=== PATIENT | female | born 1955 | race Caucasian/White ===

== ENCOUNTER 2018-06-05 09:59 | Emergency (ER) | payer OTHER ==
[~2018-06-05] VITALS: Ht 162.6 cm; Wt 61.2 kg
[~2018-06-05 09:59] MED LIST: ATIVAN1 MG PO; BROVANA15 MCG/2 M IH; GLUCOPHAGE500 MG PO; LAMICTAL XR200 MG PO; PROAIR HFA8.5 GM; REMERON15 MG PO; TRAMADOL 50 MG50 MG PO
[2018-06-05] MEDS ORDERED: CLONAZEPAM 0.50.5 M1 PO (10:14)
[2018-06-05] MEDS ORDERED: RISPERDAL0.25 MG PO (10:14)
[2018-06-05] MEDS ORDERED: AMANTADINE100 M1 PO (10:14)
[2018-06-05 10:44] LABS: ABSOLUTE EOSINOPHILS 0.1 thou/uL (0.0-0.7); ABSOLUTE LYMPHOCYTES 2.2 thou/uL (0.8-5.3); ABSOLUTE MONOCYTES 0.4 thou/uL (0.0-1.2); ABSOLUTE NEUTROPHILS 3.7 thou/uL (1.6-8.1); BASOPHILS 0.4 %; HEMATOCRIT 42.4 % (37.0-47.0); HEMOGLOBIN 14.1 gm/dL (12.0-15.0); LYMPHOCYTES 34.1 %; MCH 29.2 pg (26.0-34.0); MCHC 33.3 g/dL (28.0-37.0); MCV 87.6 fL (80.0-100.0); MPV 8.1 fl. (7.2-11.1); NUCLEATED RBCS 0 /100WBC; PLATELET COUNT* 214 thou/uL (150-400); POLYS 57.5 %; RBC 4.84 mil/uL (4.20-5.00); RDW-CV 13.3 % (10.5-14.5); WBC 6.5 thou/uL (4.0-11.0)
[2018-06-05 10:56] LABS: ANION GAP 6 mmol/L (7-16); BUN 7 mg/dL (7-18); CALCIUM 8.7 mg/dL (8.5-10.1); CHLORIDE 104 mmol/L (98-107); CO2 32 mmol/L (21-32); CREATININE 0.8 mg/dL (0.6-1.3); GLUCOSE 91 mg/dL (70-99); POTASSIUM 3.7 mmol/L (3.5-5.1); SODIUM 142 mmol/L (136-145)
[2018-06-05 10:57] LABS: APTT 27.8 Seconds (25.0-31.3); PROTIME 10.3 Seconds (9.20-11.50)
[2018-06-05 11:11] LABS: ALBUMIN 3.8 g/dL (3.4-5.0); ALKALINE PHOSPHATASE 78 U/L (46-116); CK-MB MASS < 0.5 ng/mL (<0.5-3.6); LIPASE 190 U/L (73-393); MAGNESIUM 1.9 mg/dL (1.8-2.4); NT-PRO BRAIN NAT PEPTIDE 45 pg/mL (<300); SGOT 17 U/L (15-37); SGPT 20 U/L (30-65); TOTAL BILIRUBIN 0.4 mg/dL (<0.1-1.0); TOTAL PROTEIN 7.3 g/dL (6.4-8.2); TROPONIN-I LEVEL <0.06 ng/mL (<0.06)
[2018-06-05] MEDS ORDERED: MEDROLDOSEPACK PO (11:22)
[2018-06-05 11:30] VITALS: BP 105/68
--- NOTE | 2018-06-05 17:14 | EKG ---
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
== END 2018-06-05 11:49 | disposition home or self-care (01) ==
LOC: M.ERS 09:59
PROVIDERS: Family Medicine
DX: R09.1 Pleurisy (principal); F31.9 Bipolar disorder, unspecified; E78.5 Hyperlipidemia, unspecified; M19.90 Unspecified osteoarthritis, unspecified site; J45.909 Unspecified asthma, uncomplicated; M79.7 Fibromyalgia; F17.210 Nicotine dependence, cigarettes, uncomplicated; Z88.8 Allergy status to other drugs, medicaments and biological substances; Z91.018 Allergy to other foods

== ENCOUNTER 2018-07-14 09:26 | Emergency (ER) | payer OTHER ==
[~2018-07-14] VITALS: Ht 162.6 cm; Wt 61.2 kg
[~2018-07-14 09:26] MED LIST changes: +AMANTADINE100 M1 PO; +CLONAZEPAM 0.50.5 M1 PO; +MEDROLDOSEPACK PO; +RISPERDAL0.25 MG PO
[2018-07-14 10:00] LABS: ABSOLUTE BASOPHILS 0.1 thou/uL (0.0-0.2); ABSOLUTE EOSINOPHILS 0.2 thou/uL (0.0-0.7); ABSOLUTE LYMPHOCYTES 2.6 thou/uL (0.8-5.3); ABSOLUTE MONOCYTES 0.5 thou/uL (0.0-1.2); ABSOLUTE NEUTROPHILS 3.6 thou/uL (1.6-8.1); BASOPHILS 0.8 %; EOSINOPHILS 2.3 %; HEMATOCRIT 45.7 % (37.0-47.0); HEMOGLOBIN 15.5 gm/dL (12.0-15.0); LYMPHOCYTES 37.9 %; MCH 29.9 pg (26.0-34.0); MCHC 33.9 g/dL (28.0-37.0); MCV 88.2 fL (80.0-100.0); MONOCYTES 6.8 %; MPV 8.3 fl. (7.2-11.1); NUCLEATED RBCS 0 /100WBC; PLATELET COUNT* 239 thou/uL (150-400); POLYS 52.2 %; RBC 5.19 mil/uL (4.20-5.00); RDW-CV 13.4 % (10.5-14.5); WBC 6.9 thou/uL (4.0-11.0)
[2018-07-14 10:11] LABS: ANION GAP 2 mmol/L (7-16); BUN 7 mg/dL (7-18); CALCIUM 9.2 mg/dL (8.5-10.1); CHLORIDE 103 mmol/L (98-107); CO2 33 mmol/L (21-32); CREATININE 0.8 mg/dL (0.6-1.3); GLUCOSE 104 mg/dL (70-99); SODIUM 138 mmol/L (136-145)
[2018-07-14 10:13] LABS: APTT 27.4 Seconds (25.0-31.3); PROTIME 10.1 Seconds (9.20-11.50)
[2018-07-14 10:21] LABS: ALBUMIN 4.3 g/dL (3.4-5.0); ALKALINE PHOSPHATASE 88 U/L (46-116); LIPASE 257 U/L (73-393); NT-PRO BRAIN NAT PEPTIDE 31 pg/mL (<300); SGOT 21 U/L (15-37); SGPT 23 U/L (30-65); TOTAL BILIRUBIN 0.3 mg/dL (<0.1-1.0); TOTAL PROTEIN 8.2 g/dL (6.4-8.2); TROPONIN-I LEVEL <0.06 ng/mL (<0.06)
[2018-07-14 11:10] LABS: URINE BILIRUBIN NEGATIVE (Negative); URINE BLOOD NEGATIVE (Negative); URINE CLARITY CLEAR; URINE COLOR YELLOW; URINE GLUCOSE-RANDOM NEGATIVE (Negative); URINE KETONES NEGATIVE (Negative); URINE LEUKOCYTES-REFLEX NEGATIVE (Negative); URINE NITRITE-REFLEX NEGATIVE (Negative); URINE PROTEIN NEGATIVE (Negative); URINE SPECIFIC GRAVITY <= 1.005 (1.005-1.030); URINE UROBILINOGEN 0.2 E.U./dl (0.2-1.0)
[2018-07-14] MEDS ORDERED: MEDROLDOSEPACK PO (12:41)
[2018-07-14 12:53] VITALS: BP 101/64
--- NOTE | 2018-07-15 11:01 | EKG ---
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 Stringer: MILENA : 1955 Requested By: Loraine Guajardo Order Number: [id number] MD: Giacomo Meléndez Measurements Intervals [place] Rate: 96 P: 87 [place]: 166 QRS: 59 QRSD: 84 T: 66 QT: 367 QTc: 464 Interpretive Statements Sinus rhythm nonspecific st changes Right atrial enlargement Borderline low voltage, extremity leads Baseline wander in lead(s) II,III,aVL,aVF Compared to ECG 06/05/2018 10:10:51 No significant changes Electronically Signed On 07-15-2018 11:00:52 CDT by Giacomo Meléndez [email or web address] <ELECTRONICALLY SIGNED> By: Giacomo Meléndez MD, FACC 07/15/18 1100 Giacomo Meléndez MD, [facility] /EPI
== END 2018-07-14 12:55 | disposition home or self-care (01) ==
LOC: M.ERS 09:26
PROVIDERS: Personal Emergency Response Attendant
DX: J45.909 Unspecified asthma, uncomplicated (principal); F31.9 Bipolar disorder, unspecified; E78.5 Hyperlipidemia, unspecified; M19.90 Unspecified osteoarthritis, unspecified site; M79.7 Fibromyalgia; F17.210 Nicotine dependence, cigarettes, uncomplicated; Z88.6 Allergy status to analgesic agent; Z88.8 Allergy status to other drugs, medicaments and biological substances; Z91.018 Allergy to other foods

== ENCOUNTER → 2018-10-12 | Outpatient (CLI) | payer OTHER | LOC: M.RAD 10:23 | DX: Z12.31 Encounter for screening mammogram for malignant neoplasm of breast (principal) ==

== ENCOUNTER → 2018-10-17 | Outpatient (CLI) | payer OTHER | LOC: M.ULTRA 10:21 | DX: N63.11 Unspecified lump in the right breast, upper outer quadrant (principal) ==

== ENCOUNTER 2018-11-23 09:24 | Inpatient (IN) | payer OTHER ==
[~2018-11-23] VITALS: Ht 162.6 cm; Wt 55.8 kg
[~2018-11-23 09:24] MED LIST changes: -LAMICTAL XR200 MG PO; +LAMICTAL200 MG PO; -PROAIR HFA8.5 GM; +PROAIR HFA8.5 GM INH; +RISPERDAL 1 MG T1 MG PO; -RISPERDAL0.25 MG PO
[2018-11-23 09:29] VITALS: BP 151/78
[2018-11-23 10:08] LABS: ABSOLUTE LYMPHOCYTES 1.1 thou/uL (0.8-5.3); ABSOLUTE MONOCYTES 0.6 thou/uL (0.0-1.2); ABSOLUTE NEUTROPHILS 3.3 thou/uL (1.6-8.1); BASOPHILS 0.5 %; EOSINOPHILS 0.6 %; HEMOGLOBIN 14.2 gm/dL (12.0-15.0); LYMPHOCYTES 22.4 %; MCH 29.4 pg (26.0-34.0); MCV 89.1 fL (80.0-100.0); MONOCYTES 10.9 %; MPV 8.1 fl. (7.2-11.1); NUCLEATED RBCS 0 /100WBC; PLATELET COUNT* 212 thou/uL (150-400); POLYS 65.6 %; RBC 4.83 mil/uL (4.20-5.00); RDW-CV 13.4 % (10.5-14.5); WBC 5.1 thou/uL (4.0-11.0)
[2018-11-23 10:18] LABS: PROTIME 10.2 Seconds (9.20-11.50)
[2018-11-23 10:50] LABS: ANION GAP 8 mmol/L (7-16); BUN 7 mg/dL (7-18); CHLORIDE 103 mmol/L (98-107); CO2 33 mmol/L (21-32); CREATININE 0.9 mg/dL (0.6-1.3); GLUCOSE 102 mg/dL (70-99); SODIUM 144 mmol/L (136-145); TROPONIN-I LEVEL <0.06 ng/mL (<0.06)
[2018-11-23 11:01] LABS: ALBUMIN 3.9 g/dL (3.4-5.0); ALKALINE PHOSPHATASE 78 U/L (46-116); NT-PRO BRAIN NAT PEPTIDE 53 pg/mL (<300); SGOT 22 U/L (15-37); SGPT 21 U/L (30-65); TOTAL BILIRUBIN 0.2 mg/dL (<0.1-1.0); TOTAL PROTEIN 7.5 g/dL (6.4-8.2)
[2018-11-23 11:27] VITALS: BP 120/62
[2018-11-23 12:00] VITALS: BP 117/72
[2018-11-23] MEDS ORDERED: CLONAZEPAM 1 MG1 M1 PO (12:38)
[2018-11-23] MEDS ORDERED: NEURONTIN600 MG PO (12:41)
[2018-11-23] MEDS ORDERED: NEURONTIN300 MG PO (12:42)
[2018-11-23] MEDS ORDERED: SINGULAIR 10 MG10 M1 PO (12:43)
[2018-11-23 13:53] LABS: INFLUENZA A ANTIGEN None Detected (None Detect); INFLUENZA B ANTIGEN None Detected (None Detect)
[2018-11-23 15:00] VITALS: BP 106/59
--- NOTE | 2018-11-23 15:44 | EKG ---
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 : 1955 Requested By: Sanjeev Fierro Order Number: [id number] MD: Giacomo Meléndez Measurements Intervals [place] Rate: 92 P: 83 [place]: 165 QRS: 77 QRSD: 78 T: 74 QT: 370 QTc: 458 Interpretive Statements Sinus rhythm Right atrial enlargement Compared to ECG 07/14/2018 09:30:20 ST (T wave) deviation no longer present Electronically Signed On 11-23-2018 15:44:39 BUTCHER SCULLION by Giacomo Meléndez [email or web address] <ELECTRONICALLY SIGNED> By: Giacomo Meléndez MD, [facility] 11/23/18 1544 1012 1012 Giacomo Meléndez MD, [facility] /EPI
[2018-11-23 19:45] VITALS: BP 116/76
[2018-11-24] VITALS: BP 105/56
[2018-11-24 04:00] VITALS: BP 98/40
[2018-11-24 06:31] LABS: HEMATOCRIT 37.7 % (37.0-47.0); HEMOGLOBIN 12.4 gm/dL (12.0-15.0); MCH 29.5 pg (26.0-34.0); MCV 89.2 fL (80.0-100.0); MPV 8.5 fl. (7.2-11.1); RBC 4.23 mil/uL (4.20-5.00); RDW-CV 13.7 % (10.5-14.5); WBC 7.4 thou/uL (4.0-11.0)
[2018-11-24 08:00] VITALS: BP 121/67
[2018-11-24 08:03] LABS: ALBUMIN 3.1 g/dL (3.4-5.0); CREATININE 0.7 mg/dL (0.6-1.3); MAGNESIUM 1.9 mg/dL (1.8-2.4); POTASSIUM 3.7 mmol/L (3.5-5.1); TOTAL BILIRUBIN 0.2 mg/dL (<0.1-1.0); TOTAL PROTEIN 6.3 g/dL (6.4-8.2)
[2018-11-24 12:45] VITALS: BP 107/56
[2018-11-24 16:35] VITALS: BP 110/60
[2018-11-24 20:45] VITALS: BP 107/56
[2018-11-25] VITALS: BP 121/69
[2018-11-25 04:42] VITALS: BP 108/62
[2018-11-25 08:00] VITALS: BP 125/60
[2018-11-25 15:49] VITALS: BP 130/69
[2018-11-25 20:25] VITALS: BP 126/70
[2018-11-26] VITALS: BP 118/66
[2018-11-26 04:00] VITALS: BP 128/75
[2018-11-26 08:46] VITALS: BP 132/75
[2018-11-26 09:05] LABS: HEMATOCRIT 38.3 % (37.0-47.0); HEMOGLOBIN 12.6 gm/dL (12.0-15.0); MCHC 32.8 g/dL (28.0-37.0); MCV 88.4 fL (80.0-100.0); MPV 8.1 fl. (7.2-11.1); NUCLEATED RBCS 0 /100WBC; PLATELET COUNT* 188 thou/uL (150-400); RBC 4.33 mil/uL (4.20-5.00); RDW-CV 13.6 % (10.5-14.5); WBC 13.2 thou/uL (4.0-11.0)
[2018-11-26 09:27] LABS: CALCIUM 8.3 mg/dL (8.5-10.1); CREATININE 0.7 mg/dL (0.6-1.3); POTASSIUM 3.5 mmol/L (3.5-5.1)
[2018-11-26 10:14] LABS: ABSOLUTE MONOCYTES 0.4 thou/uL (0.0-1.2); ABSOLUTE NEUTROPHILS 10.8 thou/uL (1.6-8.1); ANISOCYTOSIS 1+; PLATELET ESTIMATE ADEQUATE; POIKILOCYTOSIS 1+
[2018-11-26 16:19] VITALS: BP 146/80
[2018-11-26 20:20] VITALS: BP 138/75
[2018-11-27 08:19] LABS: ABSOLUTE LYMPHOCYTES 1.7 thou/uL (0.8-5.3); ABSOLUTE MONOCYTES 0.9 thou/uL (0.0-1.2); ABSOLUTE NEUTROPHILS 8.9 thou/uL (1.6-8.1); BASOPHILS 0.3 %; HEMATOCRIT 37.9 % (37.0-47.0); HEMOGLOBIN 12.6 gm/dL (12.0-15.0); LYMPHOCYTES 14.4 %; MCH 29.1 pg (26.0-34.0); MCHC 33.2 g/dL (28.0-37.0); MCV 87.6 fL (80.0-100.0); MONOCYTES 8.1 %; NUCLEATED RBCS 0 /100WBC; PLATELET COUNT* 193 thou/uL (150-400); POLYS 77.2 %; RBC 4.33 mil/uL (4.20-5.00); RDW-CV 13.7 % (10.5-14.5); WBC 11.5 thou/uL (4.0-11.0)
[2018-11-27 08:26] LABS: CALCIUM 8.5 mg/dL (8.5-10.1); CREATININE 0.7 mg/dL (0.6-1.3)
[2018-11-27 16:57] VITALS: BP 101/69
[2018-11-27 20:14] VITALS: BP 131/90
[2018-11-28] MEDS ORDERED: PREDNISONE 20 M20 MG PO (10:03)
[2018-11-28] MEDS ORDERED: IPRAT-ALBUT 0.5-3 ML INH (10:03)
[2018-11-28] MEDS ORDERED: CEFDINIR300 MG PO (10:03)
[2018-11-28 10:16] VITALS: BP 131/90
[2018-11-28 10:22] VITALS: BP 131/90
== END 2018-11-28 12:08 | disposition home or self-care (01) | DRG 189 ==
LOC: M.ERS 09:24 → M.3W 10:36 → M.TBA-ER 10:36 → M.3W 11:30
PROVIDERS: Emergency Medicine Emergency Medical Services; ADMIT Internal Medicine
DX: J96.01 Acute respiratory failure with hypoxia (principal); R65.10 Systemic inflammatory response syndrome (SIRS) of non-infectious origin without acute organ dysfunction; J44.0 Chronic obstructive pulmonary disease with (acute) lower respiratory infection; J20.9 Acute bronchitis, unspecified; F31.9 Bipolar disorder, unspecified; E78.5 Hyperlipidemia, unspecified; F17.210 Nicotine dependence, cigarettes, uncomplicated; M79.7 Fibromyalgia; M19.90 Unspecified osteoarthritis, unspecified site; T38.0X5A Adverse effect of glucocorticoids and synthetic analogues, initial encounter; J45.909 Unspecified asthma, uncomplicated; Z88.8 Allergy status to other drugs, medicaments and biological substances; Z91.02 Food additives allergy status; Z79.899 Other long term (current) drug therapy; D72.829 Elevated white blood cell count, unspecified

== ENCOUNTER → 2019-03-20 | Outpatient (CLI) | payer OTHER ==
[~2019-03-20] MED LIST changes: +CEFDINIR300 MG PO; +CLONAZEPAM 1 MG1 M1 PO; +IPRAT-ALBUT 0.5-3 ML INH; +NEURONTIN300 MG PO; +NEURONTIN600 MG PO; +PREDNISONE 20 M20 MG PO; +SINGULAIR 10 MG10 M1 PO
== END ==
LOC: M.ULTRA 10:05
DX: R22.2 Localized swelling, mass and lump, trunk (principal)

== ENCOUNTER 2019-06-23 10:47 | Emergency (ER) | payer OTHER ==
[~2019-06-23] VITALS: Ht 162.6 cm; Wt 56.7 kg
[2019-06-23 11:37] LABS: ABSOLUTE BASOPHILS 0.1 thou/uL (0.0-0.2); ABSOLUTE EOSINOPHILS 0.2 thou/uL (0.0-0.7); ABSOLUTE LYMPHOCYTES 2.7 thou/uL (0.8-5.3); ABSOLUTE MONOCYTES 0.5 thou/uL (0.0-1.2); ABSOLUTE NEUTROPHILS 4.5 thou/uL (1.6-8.1); BASOPHILS 0.8 %; EOSINOPHILS 2.3 %; HEMATOCRIT 39.3 % (37.0-47.0); HEMOGLOBIN 13.3 gm/dL (12.0-15.0); LYMPHOCYTES 33.9 %; MCH 29.8 pg (26.0-34.0); MCHC 33.8 g/dL (28.0-37.0); MPV 7.9 fl. (7.2-11.1); NUCLEATED RBCS 0 /100WBC; PLATELET COUNT* 225 thou/uL (150-400); RBC 4.47 mil/uL (4.20-5.00); RDW-CV 13.2 % (10.5-14.5); WBC 7.9 thou/uL (4.0-11.0)
[2019-06-23 11:53] LABS: ANION GAP 7 mmol/L (7-16); BUN 7 mg/dL (7-18); CALCIUM 8.8 mg/dL (8.5-10.1); CHLORIDE 102 mmol/L (98-107); CO2 30 mmol/L (21-32); CREATININE 0.8 mg/dL (0.6-1.3); GLUCOSE 83 mg/dL (70-99); POTASSIUM 3.6 mmol/L (3.5-5.1); SODIUM 139 mmol/L (136-145)
[2019-06-23 12:06] LABS: ALBUMIN 3.8 g/dL (3.4-5.0); ALKALINE PHOSPHATASE 66 U/L (46-116); LIPASE 219 U/L (73-393); MAGNESIUM 1.8 mg/dL (1.8-2.4); NT-PRO BRAIN NAT PEPTIDE 62 pg/mL (<300); SGOT 17 U/L (15-37); SGPT 23 U/L (30-65); TOTAL BILIRUBIN 0.3 mg/dL (<0.1-1.0); TOTAL PROTEIN 6.6 g/dL (6.4-8.2); TROPONIN-I LEVEL <0.06 ng/mL (<0.06)
[2019-06-23] MEDS ORDERED: NORCO 5-325 TA1 EAC1 PO (13:47)
[2019-06-23 13:52] VITALS: BP 114/64
--- NOTE | 2019-06-24 11:15 | EKG ---
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
--- NOTE | 2019-06-24 11:16 | EKG ---
[place] [address] ELECTROCARDIOGRAM REPORT Name: GRISEL KAYE [id number] Admission: 06/23/19 Attend Phys: Discharge: 06/23/19 Date of : 59 Report #: [id number] THIS REPORT FOR: //name// [facility] ED Test Date: 2019-06-23 Test Time: 13:14:53 Pat Name: GRISEL KAYE Department: Room: Gender: F Financial Intern: JESUS : 1955 Requested By: Sanjeev Fierro Order Number: [id number] MD: Giacomo Meléndez Measurements Intervals [place] Rate: 75 P: 83 RI: 224 QRS: 57 QRSD: 86 T: 59 QT: 419 QTc: 468 Interpretive Statements Sinus rhythm Prolonged RI interval Borderline low voltage, extremity leads Electronically Signed On 06-24-2019 11:16:18 CDT by Giacomo Meléndez [email or web address] <ELECTRONICALLY SIGNED> By: Giacomo Meléndez MD, [facility] 06/24/19 1116 1314 1314 Giacomo Meléndez MD, FACC /EPI
== END 2019-06-23 13:52 | disposition home or self-care (01) ==
LOC: M.ERS 10:47
PROVIDERS: Emergency Medicine Emergency Medical Services
DX: M79.7 Fibromyalgia (principal); R07.9 Chest pain, unspecified; E78.5 Hyperlipidemia, unspecified; M19.90 Unspecified osteoarthritis, unspecified site; J45.909 Unspecified asthma, uncomplicated; F31.9 Bipolar disorder, unspecified; F17.210 Nicotine dependence, cigarettes, uncomplicated; Z91.010 Allergy to peanuts; Z91.018 Allergy to other foods; Z88.8 Allergy status to other drugs, medicaments and biological substances

== ENCOUNTER 2019-09-05 10:56 | Emergency (ER) | payer OTHER ==
[~2019-09-05] VITALS: Ht 162.6 cm; Wt 56.7 kg
[~2019-09-05 10:56] MED LIST changes: +NORCO 5-325 TA1 EAC1 PO
[2019-09-05 12:07] LABS: ABSOLUTE MONOCYTES 0.2 thou/uL (0.0-1.2); ABSOLUTE NEUTROPHILS 5.5 thou/uL (1.6-8.1); BASOPHILS 0.5 %; EOSINOPHILS 0.4 %; HEMATOCRIT 42.2 % (37.0-47.0); HEMOGLOBIN 14.2 gm/dL (12.0-15.0); LYMPHOCYTES 14.5 %; MCH 29.7 pg (26.0-34.0); MCHC 33.7 g/dL (28.0-37.0); MCV 88.2 fL (80.0-100.0); MONOCYTES 2.5 %; MPV 7.8 fl. (7.2-11.1); NUCLEATED RBCS 0 /100WBC; PLATELET COUNT* 242 thou/uL (150-400); POLYS 82.1 %; RBC 4.78 mil/uL (4.20-5.00); WBC 6.7 thou/uL (4.0-11.0)
[2019-09-05 12:17] LABS: CALCIUM 8.9 mg/dL (8.5-10.1); CREATININE 0.7 mg/dL (0.6-1.3); POTASSIUM 3.9 mmol/L (3.5-5.1)
[2019-09-05 12:21] LABS: ALBUMIN 4.2 g/dL (3.4-5.0); TOTAL BILIRUBIN 0.2 mg/dL (<0.1-1.0); TOTAL PROTEIN 7.5 g/dL (6.4-8.2)
[2019-09-05] MEDS ORDERED: NORCO 5-325 TA1 EAC1 PO (12:38)
[2019-09-05] MEDS ORDERED: NABUMETONE 750750 M1 PO (12:43)
[2019-09-05 13:27] VITALS: BP 120/68
--- NOTE | 2019-09-05 15:23 | EKG ---
[place] [address] ELECTROCARDIOGRAM REPORT Name: GRISEL KAYE Room: [facility]#: [id number] Admission: 09/05/19 Attend Phys: Discharge: 09/05/19 Date of : 59 Report #: [id number] THIS REPORT FOR: //name// [facility] ED Test Date: 2019-09-05 Test Time: 11:25:28 Pat Name: GRISEL KAYE Department: Room: Gender: F Or Assistant: : 1955 Requested By: Lashell Cason Order Number: [id number] MD: Giacomo Meléndez Measurements Intervals [place] Rate: 80 P: 86 NM: 173 QRS: 75 QRSD: 78 T: 81 QT: 389 QTc: 449 Interpretive Statements Sinus rhythm Biatrial enlargement septal infarct, age indeterminate Baseline wander in lead(s) I,III,aVL,aVF,V6 Compared to ECG 06/23/2019 13:14:53 Atrial abnormality now present Myocardial infarct finding now present First degree AV block no longer present Electronically Signed On 09-05-2019 15:23:11 [employer] by Giacomo Meléndez [email or web address] <ELECTRONICALLY SIGNED> By: Giacomo Meléndez MD, [facility] 09/05/19 1523 1125 1125 Giacomo Meléndez MD, [facility] /EPI
== END 2019-09-05 13:27 | disposition home or self-care (01) ==
LOC: M.ERS 10:56
PROVIDERS: Nurse Practitioner Family
DX: J20.9 Acute bronchitis, unspecified (principal); M79.18 Myalgia, other site; F31.9 Bipolar disorder, unspecified; E78.5 Hyperlipidemia, unspecified; M19.90 Unspecified osteoarthritis, unspecified site; J45.909 Unspecified asthma, uncomplicated; F17.210 Nicotine dependence, cigarettes, uncomplicated; Z91.010 Allergy to peanuts; Z91.018 Allergy to other foods; Z88.8 Allergy status to other drugs, medicaments and biological substances

== ENCOUNTER 2019-10-17 17:53 | Emergency (ER) | payer OTHER ==
[~2019-10-17] VITALS: Ht 162.6 cm; Wt 59.0 kg
[~2019-10-17 17:53] MED LIST changes: +NABUMETONE 750750 M1 PO
[2019-10-17] MEDS ORDERED: STIOLTO RESPIMAT4 GM INH (18:01)
[2019-10-17 18:46] LABS: ABSOLUTE BASOPHILS 0.1 thou/uL (0.0-0.2); ABSOLUTE EOSINOPHILS 0.2 thou/uL (0.0-0.7); ABSOLUTE MONOCYTES 0.6 thou/uL (0.0-1.2); ABSOLUTE NEUTROPHILS 5.2 thou/uL (1.6-8.1); BASOPHILS 0.6 %; EOSINOPHILS 1.9 %; HEMATOCRIT 41.6 % (37.0-47.0); HEMOGLOBIN 14.3 gm/dL (12.0-15.0); LYMPHOCYTES 33.1 %; MCH 30.2 pg (26.0-34.0); MCHC 34.3 g/dL (28.0-37.0); MCV 88.2 fL (80.0-100.0); MONOCYTES 6.9 %; MPV 8.3 fl. (7.2-11.1); NUCLEATED RBCS 0 /100WBC; PLATELET COUNT* 272 thou/uL (150-400); POLYS 57.5 %; RBC 4.72 mil/uL (4.20-5.00); RDW-CV 13.3 % (10.5-14.5); WBC 9.1 thou/uL (4.0-11.0)
[2019-10-17 18:57] LABS: CALCIUM 8.7 mg/dL (8.5-10.1); CREATININE 0.8 mg/dL (0.6-1.3); POTASSIUM 3.9 mmol/L (3.5-5.1)
[2019-10-17 19:07] LABS: ALBUMIN 3.9 g/dL (3.4-5.0); MAGNESIUM 1.8 mg/dL (1.8-2.4); TOTAL BILIRUBIN 0.3 mg/dL (<0.1-1.0); TOTAL PROTEIN 7.2 g/dL (6.4-8.2)
[2019-10-17 21:17] VITALS: BP 110/60
--- NOTE | 2019-10-18 10:26 | EKG ---
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: : 1955 Requested By: Sanjeev Fierro Order Number: [id number] MD: Giacomo Meléndez Measurements Intervals [place] Rate: 91 P: 83 [place]: 177 QRS: 73 QRSD: 78 T: 75 QT: 379 QTc: 467 Interpretive Statements Sinus rhythm Biatrial enlargement Compared to ECG 09/05/2019 11:25:28 Myocardial infarct finding no longer present Electronically Signed On 10-18-2019 10:25:36 PROJECT FINANCE ANALYST by Giacomo Meléndez [email or web address] <ELECTRONICALLY SIGNED> By: Giacomo Meléndez MD, [facility] 10/18/19 1025 D: 01/1830 30 Giacomo Meléndez MD, FACC /EPI
== END 2019-10-17 21:18 | disposition home or self-care (01) ==
LOC: M.ERS 17:53
PROVIDERS: Emergency Medicine Emergency Medical Services
DX: R07.89 Other chest pain (principal); R06.02 Shortness of breath; F17.210 Nicotine dependence, cigarettes, uncomplicated; Z91.018 Allergy to other foods; Z88.8 Allergy status to other drugs, medicaments and biological substances

== ENCOUNTER 2020-01-24 07:11 | Emergency (ER) | payer OTHER ==
[~2020-01-24] VITALS: Ht 162.6 cm; Wt 56.7 kg
[~2020-01-24 07:11] MED LIST changes: -CLONAZEPAM 0.50.5 M1 PO; +KLONOPIN1 MG PO; +STIOLTO RESPIMAT4 GM INH
[2020-01-24] MEDS ORDERED: LAMOTRIGINE200 MG PO (07:30)
[2020-01-24] MEDS ORDERED: SLEEPING50 MG PO (07:31)
[2020-01-24] MEDS ORDERED: GINKGO60 MG PO (07:32)
[2020-01-24] MEDS ORDERED: FLAX OIL1000 MG PO (07:32)
[2020-01-24 07:41] LABS: ABSOLUTE EOSINOPHILS 0.2 thou/uL (0.0-0.7); ABSOLUTE MONOCYTES 0.6 thou/uL (0.0-1.2); BASOPHILS 0.5 %; EOSINOPHILS 1.9 %; HEMATOCRIT 40.5 % (37.0-47.0); HEMOGLOBIN 13.6 gm/dL (12.0-15.0); LYMPHOCYTES 26.2 %; MCHC 33.7 g/dL (28.0-37.0); MCV 89.2 fL (80.0-100.0); MONOCYTES 7.7 %; MPV 8.5 fl. (7.2-11.1); NUCLEATED RBCS 0 /100WBC; PLATELET COUNT* 199 thou/uL (150-400); POLYS 63.7 %; RBC 4.54 mil/uL (4.20-5.00); RDW-CV 12.7 % (10.5-14.5); WBC 7.8 thou/uL (4.0-11.0)
[2020-01-24 07:54] LABS: CREATININE 0.9 mg/dL (0.6-1.3); POTASSIUM 3.7 mmol/L (3.5-5.1)
[2020-01-24 07:59] LABS: ALBUMIN 3.4 g/dL (3.4-5.0); TOTAL BILIRUBIN 0.3 mg/dL (<0.1-1.0); TOTAL PROTEIN 6.1 g/dL (6.4-8.2)
[2020-01-24 08:51] VITALS: BP 103/62
== END 2020-01-24 08:51 | disposition home or self-care (01) ==
LOC: M.ERS 07:11
PROVIDERS: Emergency Medicine
DX: S70.02XA Contusion of left hip, initial encounter (principal); S09.90XA Unspecified injury of head, initial encounter; R42 Dizziness and giddiness; E78.5 Hyperlipidemia, unspecified; J45.909 Unspecified asthma, uncomplicated; M19.90 Unspecified osteoarthritis, unspecified site; M79.7 Fibromyalgia; F31.9 Bipolar disorder, unspecified; F17.210 Nicotine dependence, cigarettes, uncomplicated; Z90.49 Acquired absence of other specified parts of digestive tract; Z91.018 Allergy to other foods; Z91.010 Allergy to peanuts; Z88.1 Allergy status to other antibiotic agents; Z88.8 Allergy status to other drugs, medicaments and biological substances; W18.39XA Other fall on same level, initial encounter; Y93.89 Activity, other specified; Y92.89 Other specified places as the place of occurrence of the external cause; Y99.8 Other external cause status

== ENCOUNTER 2020-05-06 12:59 | Emergency (ER) | payer OTHER ==
[~2020-05-06] VITALS: Ht 162.6 cm; Wt 54.4 kg
[~2020-05-06 12:59] MED LIST changes: +FLAX OIL1000 MG PO; +GINKGO60 MG PO; +LAMOTRIGINE200 MG PO; +SLEEPING50 MG PO
[2020-05-06 13:47] LABS: ABSOLUTE BASOPHILS 0.1 thou/uL (0.0-0.2); ABSOLUTE EOSINOPHILS 0.2 thou/uL (0.0-0.7); ABSOLUTE LYMPHOCYTES 2.3 thou/uL (0.8-5.3); ABSOLUTE MONOCYTES 0.7 thou/uL (0.0-1.2); ABSOLUTE NEUTROPHILS 5.2 thou/uL (1.6-8.1); BASOPHILS 0.6 %; EOSINOPHILS 1.9 %; HEMATOCRIT 42.6 % (37.0-47.0); HEMOGLOBIN 14.6 gm/dL (12.0-15.0); LYMPHOCYTES 27.6 %; MCH 30.5 pg (26.0-34.0); MCHC 34.3 g/dL (28.0-37.0); MCV 88.9 fL (80.0-100.0); MONOCYTES 7.9 %; MPV 8.2 fl. (7.2-11.1); NUCLEATED RBCS 0 /100WBC; PLATELET COUNT* 228 thou/uL (150-400); RDW-CV 13.2 % (10.5-14.5); WBC 8.3 thou/uL (4.0-11.0)
[2020-05-06 13:55] LABS: CREATININE 0.8 mg/dL (0.6-1.3); POTASSIUM 3.9 mmol/L (3.5-5.1)
[2020-05-06 13:59] LABS: ALBUMIN 4.1 g/dL (3.4-5.0); TOTAL BILIRUBIN 0.4 mg/dL (<0.1-1.0); TOTAL PROTEIN 7.3 g/dL (6.4-8.2)
[2020-05-06] MEDS ORDERED: NORCO 5-325 TA1 EAC2 PO (14:15)
[2020-05-06 14:35] VITALS: BP 105/62
== END 2020-05-06 14:36 | disposition home or self-care (01) ==
LOC: M.ERS 12:59
PROVIDERS: Physician Assistant
DX: G89.29 Other chronic pain (principal); E78.5 Hyperlipidemia, unspecified; M19.90 Unspecified osteoarthritis, unspecified site; J45.909 Unspecified asthma, uncomplicated; M79.7 Fibromyalgia; F17.210 Nicotine dependence, cigarettes, uncomplicated; Z91.010 Allergy to peanuts; Z91.018 Allergy to other foods; Z88.1 Allergy status to other antibiotic agents; Z88.8 Allergy status to other drugs, medicaments and biological substances

== ENCOUNTER → 2020-06-10 | Outpatient (CLI) | payer OTHER ==
[~2020-06-10] MED LIST changes: +NORCO 5-325 TA1 EAC2 PO
--- NOTE | 2020-06-10 13:14 | 2DMMODE ---
[place] [address] 2 D/M-MODE ECHOCARDIOGRAM Name: GRISEL KAYE Room: [facility].#: [id number] Admission: 06/10/20 Attend Phys: Marco Aguirre, Discharge: Date of : 59 Date of Service: 06/10/20 1314 Report #: [id number] THIS REPORT FOR: cc: Saqib Vela,Saqib Sheridan,Ramírez Sheppard MD [facility] ~ APPROVED REPORT Study performed: 06/10/2020 09:45:20 EXAM: Comprehensive 2D, Doppler, and color-flow Echocardiogram Patient Location: Out-Patient BSA: 1.57 HR: 84 bpm BP: 96/54 mmHg Other Information Study Quality: Good Indications Dyspnea Palpitations 2D Dimensions IVSd: 7.91 (7-11mm) LVOT Diam: 16.05 (18-24mm) LVDd: 38.26 mm PWd: 6.49 (7-11mm) Ascending Ao: 21.57 (22-36mm) LVDs: 24.71 (25-40mm) Aortic Root: 23.93 mm Volumes Left Atrial Volume (Systole) LA ESV Index: 13.20 mL/m2 Aortic Valve AoV Peak Berhane.: 1.33 m/s AO Peak Gr.: 7.03 mmHg LVOT Max P.76 mmHg AO Mean Gr.: 3.72 mmHg LVOT Mean P.36 mmHg LVOT Max V: 0.83 m/s AO V2 VTI: 25.43 cm LVOT Mean V: 0.54 m/s REUBEN (VTI): 1.45 cm2 LVOT V1 VTI: 18.19 [place] [address] 2 D/M-MODE ECHOCARDIOGRAM Name: GRISEL KAYE [facility] [id number] Admission: 06/10/20 Attend Phys: Marco Aguirre, Discharge: Date of : 59 Date of Service: 06/10/20 1314 Report #: [id number] E/A Ratio: 1.02 MV Decel. Time: 227.91 ms MV E Max Berhane.: 0.68 m/s MV PHT: 66.09 ms MVA (PHT): 3.33 cm2 TDI E/Lateral E': 6.80 E/Medial E': 8.50 Medial E' Berhane.: 0.08 m/s Lateral E' Berhane.: 0.10 m/s Pulmonary Valve PV Peak Berhane.: 0.90 m/s PV Peak Gr.: 3.23 mmHg Tricuspid Valve RAP Estimate: 5.00 mmHg TR Peak Gr.: 13.81 mmHg RVSP: 18.81 mmHg PA Pressure: 18.81 mmHg Left Ventricle The left ventricle is normal size. There is normal LV segmental wall motion. There is normal left ventricular wall thickness. Left ventricular systolic function is normal. The left ventricular ejection fraction is within the normal range. LVEF is 55%. The left ventricular diastolic function is normal. Right Ventricle The right ventricle is normal size. The right ventricular systolic function is normal. Atria The left atrium size is normal. The right atrium size is normal. Aortic Valve The aortic valve is normal in structure. No aortic regurgitation is present. There is no aortic valvular stenosis. Mitral Valve The mitral valve is normal in structure. Trace mitral regurgitation. No evidence of mitral valve stenosis. Tricuspid Valve The tricuspid valve is normal in structure. [place] [address] 2 D/M-MODE ECHOCARDIOGRAM Name: GRISEL KAYE Room: [facility]#: [id number] Admission: 06/10/20 Attend Phys: Marco Aguirre, Discharge: Date of : 59 Date of Service: 06/10/20 1314 Report #: [id number] Pulmonic Valve The pulmonary valve is normal in structure. There is no pulmonic valvular regurgitation. Great Vessels The aortic root is normal in size. IVC is normal in size and collapses >50% with inspiration. Pericardium There is no pericardial effusion. <Conclusion> The left ventricle is normal size. Left ventricular systolic function is normal. The left ventricular ejection fraction is within the normal range. LVEF is 55%. The left ventricular diastolic function is normal. The right ventricle is normal size. The left atrium size is normal. The aortic valve is normal in structure. The mitral valve is normal in structure. Trace mitral regurgitation. The tricuspid valve is normal in structure. Mild tricuspid regurgitation. IVC is normal in size and collapses >50% with inspiration. There is no pericardial effusion. There is normal LV segmental wall motion. <ELECTRONICALLY SIGNED> By: Ramírez Greenberg MD, FACC 06/10/20 1314 13 13 Ramírez Gerenberg MD, FACC /INF
== END ==
LOC: M.CRD 09:39
PROVIDERS: ATTEND Internal Medicine Cardiovascular Disease
DX: I07.1 Rheumatic tricuspid insufficiency (principal)

== ENCOUNTER 2020-10-08 06:54 | Emergency (ER) | payer OTHER ==
[~2020-10-08] VITALS: Ht 162.6 cm; Wt 54.4 kg
[2020-10-08] MEDS ORDERED: FLEXERIL PO (08:55)
[2020-10-08 09:20] VITALS: BP 100/62
== END 2020-10-08 09:21 | disposition home or self-care (01) ==
LOC: M.ERS 06:54
DX: S06.0X0A Concussion without loss of consciousness, initial encounter (principal); S86.811A Strain of other muscle(s) and tendon(s) at lower leg level, right leg, initial encounter; S20.212A Contusion of left front wall of thorax, initial encounter; J45.909 Unspecified asthma, uncomplicated; F17.210 Nicotine dependence, cigarettes, uncomplicated; Z79.899 Other long term (current) drug therapy; Z88.1 Allergy status to other antibiotic agents; Z88.8 Allergy status to other drugs, medicaments and biological substances; Z91.018 Allergy to other foods; W18.39XA Other fall on same level, initial encounter; Y93.89 Activity, other specified; Y92.89 Other specified places as the place of occurrence of the external cause; Y99.8 Other external cause status

== ENCOUNTER → 2020-11-18 | Outpatient (CLI) | payer OTHER ==
[~2020-11-18] MED LIST changes: +FLEXERIL PO
== END ==
LOC: M.RAD 11:02
PROVIDERS: ATTEND Internal Medicine
DX: Z12.31 Encounter for screening mammogram for malignant neoplasm of breast (principal)

== ENCOUNTER → 2021-04-19 | Outpatient (CLI) | payer OTHER ==
[~2021-04-19] MED LIST changes: +ASA81BEC PO; +FLORINEF ACETA0.1 MG PO; +NORCO5 PO; +ZETIA10 MG PO
--- NOTE | 2021-04-19 16:59 | CARDNUC ---
[place] [address] CARDIAC NUCLEAR IMAGING REPORT Name: GRISEL KAYE Room: [facility]#: [id number] Admission: 04/19/21 Attend Phys: Marco Augirre, Discharge: Date of : 59 Date of Service: 04/19/21 1659 Report #: [id number] THIS REPORT FOR: cc: Magno Baez MD, Jonathan MD Liston,Marco Farr MD [facility] ~ APPROVED REPORT Imaging Protocol: Rest Tc-99m/Stress Tc-99m 1 day Study performed: 04/19/2021 12:16:09 Indication: Dyspnea, FHX CAD. Patient Location: Out-Patient Stress Tech: Kusum Chery Stress Nurse: Teresa Lemus RN NM Tech:UMAIR Brito Ht: 5 ft 4 in Wt: 126 lbs BSA: 1.61 m2 BMI: 21.62 Medical History Medical History: Dyspnea, COPD, emphysema, DM II, HTN, current smoker, FHX CAD, HLD, orthostatic hypotension, palpitations, syncope and collapse, asthma, cholelithiasis, Fibromyalgia, GERD, neuropathy, tremor. Medications: ASA 81 mg, Zetia Allergies: Atorvastatin, Augmentin, Diazepam, [place], Saphris, Soma, Zithromax, Zoloft. Cardiac Risk Factors: Age, Current Smoker, DM, FHX of CAD, HTN, Hyperlipidemia, SOB, orthostatic hypotension. Previous Cardiac Procedures: None Pretest Chest Pain Characteristics: No chest pain Exercise History: Sedentary Physical Disabilities: COPD. Emphysema, weakness. Meds Held (24 hrs): None Resting Data Rest SPECT myocardial perfusion imaging was performed in supine position 30 minutes following the intravenous injection of 9.2 mCi of Tc-99m Sestamibi. Time of rest injection: 1030 Date: 04/19/2021 The images were gated to evaluate regional wall motion and calculate left ventricular ejection fraction. Administration Route: [place] [address] CARDIAC NUCLEAR IMAGING REPORT Name: GRISEL KAYE [facility] [id number] Admission: 04/19/21 Attend Phys: Marco Aguirre, Discharge: Date of : 59 Date of Service: 04/19/21 1659 Report #: [id number] Administration Site: Right Wrist Pharmacologic Stress Pharmacologic stress test was performed by injecting Regadenoson 0.4 mg IV push over 10-15 seconds immediately followed by the intravenous injection of 28.1 mCi of Tc-99m Sestamibi. Time of stress injection: 1230 Date: 04/19/2021 Administration Route: IV Administration Site: Right Wrist Gated Stress SPECT was performed 40 minutes after stress injection. The images were gated to evaluate regional wall motion and calculate left ventricular ejection fraction. Prone imaging was performed. Stress Test Details Stress Test: Pharmacologic stress testing performed using 0.4 mg of regadenoson per 5 mL given IV over 10 seconds. Reason for pharmacologic stress test: COPD. Emphysema, weakness.. HR Max Heart Rate (APMHR): 157 bpm Resting HR: 78 bpm Target HR (85% APMHR): 133 bpm Max HR Achieved: 118 bpm % of APMHR: 75 Recovery HR: 100 bpm BP Resting BP: 113/67 mmHg Max BP: 93/59 mmHg Recovery BP: 101/60 mmHg ECG Resting ECG: Sinus Rhythm Stress ECG: Sinus Tachycardia ST Change: None Arrhythmia: None Recovery ECG: Sinus Rhythm Recovery ST Change: None Recovery Arrhythmia: None Clinical Reason for Termination: Completed protocol Stress Symptoms: None reported. Exercise duration: 00 min 00 sec Exercise capacity: 1.00 METs The patient tolerated Lexiscan infusion without significant [place] [address] CARDIAC NUCLEAR IMAGING REPORT Name: GRISEL KAYE Room: [facility]#: [id number] Admission: 04/19/21 Attend Phys: Marco Aguirre, Discharge: Date of : 59 Date of Service: 04/19/21 1659 Report #: [id number] symptoms. Nurse Comments Patient tolerated a sitting Lexiscan. Patient was stable and stated she felt good when escorted to Nuclear Medicine for imaging. Stress ECG Conclusion The baseline twelve-lead EKG shows sinus rhythm with no significant ST segment or T wave abnormalities. EKGs obtained during and post Lexiscan infusion show sinus rhythm and sinus tachycardia with no significant ST segment changes when compared to baseline. There were no stress-induced arrhythmias. Study Quality Study: Good Artifact: No artifact Study Data At rest, the left ventricular ejection fraction was 68%.. Post stress, the left ventricular ejection was 74%.. TID = 0.83. Perfusion Perfusion images obtained in the supine position at rest and post Lexiscan stress show uniform uptake of the radioisotope throughout the myocardium. There were no defects to suggest infarct or ischemia. Wall Motion Normal left ventricular wall motion. Nuclear Conclusion ECG Findings: negative for ischemia Clinical Findings: negative for ischemia Nuclear Findings: negative for ischemia Exercise Capacity: not assessed Left Ventricular Function: normal Risk Study: low Perfusion images show no defect to suggest infarct or ischemia. Left ventricular systolic function appears normal on gated studies. This is a low risk study. <Conclusion> The baseline twelve-lead EKG shows sinus rhythm with no significant ST segment or T wave abnormalities. EKGs obtained during and post Lexiscan infusion show sinus rhythm and sinus tachycardia [place] [address] CARDIAC NUCLEAR IMAGING REPORT Name: GRISEL KAYE Room: [facility]#: [id number] Admission: 04/19/21 Attend Phys: Marco Aguirre, Discharge: Date of : 59 Date of Service: 04/19/21 1659 Report #: [id number] segment changes when compared to baseline. There were no stress-induced arrhythmias. <ELECTRONICALLY SIGNED> By: Marco Aguirre MD, FACC 04/19/211658 58 58 Marco Aguirre MD, FACC /INF
== END ==
LOC: M.NUC 01-08 15:44 → M.CRD 01-28 09:00 → M.NUC 01-28 10:00 → M.CRD 09:00 → M.NUC 09:00
PROVIDERS: ATTEND Internal Medicine Cardiovascular Disease
DX: R00.0 Tachycardia, unspecified (principal); R06.02 Shortness of breath; Z82.49 Family history of ischemic heart disease and other diseases of the circulatory system